=== PATIENT | male | born 1975 | race Caucasian/White ===

== ENCOUNTER 2021-10-11 10:18 | Emergency (ER) | payer BC, SELFPAY ==
--- NOTE | ~2021-10-11 | XR_ITS ---
EXAMINATION: XR abdomen/kub 1V EXAM DATE: 10/11/2021 11:25 INDICATION: LUQ abdomen pain X3 days/no trauma. TECHNIQUE: Frontal projection of the upper abdomen, frontal projection lower abdomen/pelvis for inter pretation. There is no prior study for comparison. FINDINGS: There is moderate amount of ascending and transverse colonic stool and gas, small amount in the left hemicolon. No small bowel dilation, nonobstructive bowel gas pattern. There are no suspic ious calcifications identified. There is no organomegaly suspected. The bones are unremarkable. Milagros ng bases unremarkable. IMPRESSION: Moderate amount of right hemicolonic stool and gas. Reviewed, dictated and finalized at location B.
[2021-10-11 10:59] VITALS: BP 131/88; PULSE 69; RESP 18; TEMP 36.7; O2SAT 98
--- NOTE | 2021-10-11 11:14 | ED.ABDPAIN ---
HPI - Abdominal Pain General Chief Complaint: Abdominal Pain Stated Complaint: lt side pain Time Seen by Provider: 10/11/21 11:10 Source: patient Mode of arrival: ambulatory Limitations: no limitations History of Present Illness HPI narrative: Mr. Mckeon is a 46-year-old male patient presenting to the clinic today with complaints of constant left-sided lateral abdominal pain. He reports that this morning the pain got worse with coughing and sneezing. States the pain is been roughly going on for about a week or 2 and has been a dull ache. Rates pain currently 5 out of 10. Pain is nonradiating. Denies any blood in his stool or urinary symptoms. States that when he does have a bowel movement he does not feel completely empty. He denies any fever, chills, nausea,vomiting or diarrhea. MD elicited complaint: abdominal pain Related Data Allergies Allergy/AdvReac Type Severity Reaction Status Date / Time No Known Allergies Allergy Mild Verified 04/01/08 21:36 Review of Systems Review of Systems: Pertinent positives per HPI. Patient denies any fever, chills, rash, headache, visual changes, dizziness, cough, runny nose, sore throat, shortness of breath, chest pain, palpitations, nausea, vomiting, diarrhea, constipation, or any urinary issues. PMFSH Past Medical History Medical History Sleep apnea, obstructive Family History Family History Grandparent Diabetes mellitus Family history of glaucoma Father Family history of mental disorder Family history of cardiovascular disease Cerebrovascular accident Social History Social History Smoking status: Current every day smoker Comments At the time of my signature, I reviewed and agree with the nursing past medical, surgical, social, and family history. There is no relevant family history pertinent to the patient complaint. Exam Narrative: General: Well-developed, well nourished, in no apparent distress. Head: Normocephalic, atraumatic. Cardio: Regular rate and rhythm, s1 and s2 normal, no murmur appreciated. Resp: Clear to auscultation bilaterally, no rhonchi, rales, wheezing or rubs. Abdomen: Soft, pliable, bowel sounds present in all quadrants, tender to deep palpation over the left mid abdomen, no organomegly, no CVAT tenderness. No suprapubic tenderness. Course Course Emergency Course: Portions of this record may have been created with voice recognition software. Level of Care: Express Care Visit Vital Signs Vital signs: Vital Signs Temperature 36.7 C 10/11/21 10:59 Pulse Rate 69 10/11/21 10:59 Respiratory Rate 18 10/11/21 10:59 Blood Pressure 131/88 10/11/21 10:59 Pulse Oximetry 98 10/11/21 10:59 Temperature 36.7 C 10/11/21 10:59 Pulse Rate 69 10/11/21 10:59 Respiratory Rate 18 10/11/21 10:59 Blood Pressure 131/88 10/11/21 10:59 Pulse Oximetry 98 10/11/21 10:59 Vital signs reviewed MDM - Abdominal Pain MDM Narrative Medical decision making narrative: At the time of assessment patient is resting comfortably on the exam table. He is having left-sided lateral abdominal pain without fever, chills, nausea, vomiting, diarrhea, or constipation. Does not feel fully evacuated when having a bowel movement. Urinalysis completed and was negative in the clinic. KUB x-ray was completed and showed a moderate collection of stool in the right hemicolon with extended gas into the transverse and descending colon. I suspect constipation as well as possibly abdominal wall pain. Supportive measures discussed with patient and he voiced understanding of discharge instructions Differential Diagnosis Differential diagnosis: Likely abdominal pain, acute appendicitis, calculus of kidney, constipation, diverticulitis, gastroenteritis, pancreatitis, small bowel obstru
== END 2021-10-11 11:41 | disposition home or self-care (01) ==
PROVIDERS: Emergency Provider Nurse Practitioner Family; PCP Family Medicine Sports Medicine
DX: K59.00 Constipation, unspecified (principal); F17.200 Nicotine dependence, unspecified, uncomplicated; G47.33 Obstructive sleep apnea (adult) (pediatric)
CPT/HCPCS: 74018; 81003; 99211; G0463